=== PATIENT | male | born 1955 | race Caucasian/White ===

== ENCOUNTER → 2020-01-08 | Outpatient (REF) | payer OTHER ==
[2020-01-08 13:44] LABS: FOLATE 9.2 NG/ML; RHEUMATOID FACTOR QUANT < 10.0 IU/ML (<15.0); VITAMIN B12 LEVEL 456 PG/ML
== END ==
LOC: M LABNEURO 09:51
PROVIDERS: ATTEND Psychiatry & Neurology Neurology
DX: R51 Headache (principal)

== ENCOUNTER → 2021-12-31 | Outpatient (CLI) | payer OTHER | LOC: M SLEEP HO 09:47 | PROVIDERS: ATTEND Physician Assistant | DX: G47.10 Hypersomnia, unspecified (principal) ==